=== PATIENT | male | born 1975 | race Caucasian/White ===

== ENCOUNTER 2020-04-01 12:50 | Outpatient (CLI) | payer OTHER ==
[2020-04-01 14:08] LABS: BASOPHILS % (AUTO) 0.3 % (0.0-2.0); EOSINOPHILS # (AUTO) 0.1 K/uL (0.0-0.4); EOSINOPHILS % (AUTO) 2.1 % (0.0-4.0); HEMATOCRIT 38.5 % (36-54); HEMOGLOBIN 13.2 g/dL (14.0-18.0); LYMPHOCYTES # (AUTO) 0.5 K/uL (1.0-5.5); LYMPHOCYTES % (AUTO) 18.6 % (20.5-51.5); MEAN CORPUSCULAR HEMOGLOBIN 34 pg (27-31); MEAN CORPUSCULAR HGB CONC 34 % (32-36); MEAN CORPUSCULAR VOLUME 100 fL (79.0-98.0); MONOCYTES # (AUTO) 0.3 K/uL (0.0-1.0); MONOCYTES % (AUTO) 10.3 % (1.7-9.3); NEUTROPHILS # (AUTO) 1.8 K/uL (1.8-7.7); NEUTROPHILS % (AUTO) 68.7 % (40.0-70.0); PLATELET COUNT (AUTO) 74 K/uL (130-430); RED BLOOD CELL COUNT(AUTO) 3.85 MIL/uL (4.2-6.2); WHITE BLOOD COUNT (AUTO) 2.6 K/uL (4.8-10.8)
[2020-04-01 14:42] LABS: ALBUMIN 3.5 g/dL (3.4-4.8); CALCIUM 8.1 mg/dL (8.4-11.0); CREATININE 0.71 mg/dL (0.55-1.30); POTASSIUM 4.2 mmol/L (3.5-5.1); THYROID STIMULATING HORMONE 1.97 uIu/mL (0.36-3.74); TOTAL BILIRUBIN 2.3 mg/dL (0.0-1.0)
[2020-04-02 13:16] LABS: FERRITIN 1615 ng/mL (30-400)
== END 2020-04-01 17:03 | disposition home or self-care (01) ==
LOC: SLB 12:50
PROVIDERS: ATTEND Family Medicine
DX: K62.1 Rectal polyp (principal); L73.9 Follicular disorder, unspecified; R61 Generalized hyperhidrosis
CPT/HCPCS: 36415; 80053; 80061; 82150-TC; 82728; 83540-TC; 83690-TC; 84443-TC; 85025; 86480

== ENCOUNTER 2020-04-26 08:23 | Outpatient (CLI) | payer OTHER ==
[2020-04-26 09:36] LABS: ALBUMIN 3.2 g/dL (3.4-4.8); BILIRUBIN,DIRECT 2.8 mg/dL (0.0-0.3); TOTAL BILIRUBIN 3.4 mg/dL (0.0-1.0)
[2020-04-27 08:14] LABS: HEPATITIS B CORE AB, IgM Negative (Negative); HEPATITIS B SURFACE AG Negative (Negative); HEPATITIS C VIRUS AB <0.1 s/co ratio (0.0-0.9)
== END 2020-04-26 21:04 | disposition home or self-care (01) ==
LOC: SUS 08:23
PROVIDERS: ATTEND Family Medicine
DX: R16.1 Splenomegaly, not elsewhere classified (principal); R79.89 Other specified abnormal findings of blood chemistry
CPT/HCPCS: 36415; 76700-TC; 80076; 86705; 86709; 86803; 87340

== ENCOUNTER 2020-06-06 07:59 | Outpatient (CLI) | payer OTHER ==
[2020-06-07 05:07] LABS: HEPATITIS A AB, IgM Negative (Negative); HEPATITIS B CORE AB, IgM Negative (Negative); HEPATITIS B SURFACE AG Negative (Negative)
[2020-06-07 08:06] LABS: AFP, TUMOR MARKER 4.2 ng/mL (0.0-8.3)
[2020-06-07 13:07] LABS: ANTI NUCLEAR AB WITH REFLEX Negative (Negative)
[2020-06-08 05:08] LABS: CERULOPLASMIN 30.2 mg/dL (16.0-31.0)
== END 2020-06-06 20:38 | disposition home or self-care (01) ==
LOC: SLB 07:59
DX: R94.5 Abnormal results of liver function studies (principal)
CPT/HCPCS: 36415; 80074; 82105; 82390; 83516; 84443-TC; 86038

== ENCOUNTER 2020-06-08 10:57 | Outpatient (CLI) | payer OTHER ==
[2020-06-08 12:14] LABS: BILIRUBIN,DIRECT 4.9 mg/dL (0.0-0.3)
[2020-06-08 12:35] LABS: TOTAL BILIRUBIN 5.5 mg/dL (0.0-1.0)
== END 2020-06-08 20:18 | disposition home or self-care (01) ==
LOC: SLB 10:57
PROVIDERS: ATTEND Family Medicine
DX: Z00.00 Encounter for general adult medical examination without abnormal findings (principal); R05 Cough
CPT/HCPCS: 36415; 71046-TC; 80076; 86480

== ENCOUNTER 2020-06-23 07:57 | Outpatient (CLI) | payer OTHER ==
[2020-06-23 08:58] LABS: ALBUMIN 2.3 g/dL (3.4-4.8); BILIRUBIN,DIRECT 1.4 mg/dL (0.0-0.3); CALCIUM 8.6 mg/dL (8.4-11.0); CREATININE 0.92 mg/dL (0.55-1.30); PHOSPHORUS 4.1 mg/dL (2.7-4.5); POTASSIUM 4.4 mmol/L (3.5-5.1); TOTAL BILIRUBIN 1.7 mg/dL (0.0-1.0)
[2020-06-24 07:07] LABS: FREE PSA 0.47 ng/mL
[2020-06-24 08:06] LABS: % FREE PSA 21.4 % (.); PROSTATE SPECIFIC AG TOTAL 2.2 ng/mL (0.0-4.0)
== END 2020-06-23 20:49 | disposition home or self-care (01) ==
LOC: SLB 07:57
PROVIDERS: ATTEND Family Medicine
DX: K64.9 Unspecified hemorrhoids (principal); R79.89 Other specified abnormal findings of blood chemistry
CPT/HCPCS: 36415; 80053; 82248-TC; 84100-TC; 84153

== ENCOUNTER 2020-06-27 12:00 | Outpatient (CLI) | payer OTHER | END 2020-06-27 20:09 | disposition home or self-care (01) | LOC: SMI 12:00 | PROVIDERS: ATTEND Family Medicine | DX: Z03.89 Encounter for observation for other suspected diseases and conditions ruled out (principal); R79.89 Other specified abnormal findings of blood chemistry | CPT/HCPCS: 74181 ==

== ENCOUNTER 2020-07-01 08:44 | Outpatient (CLI) | payer OTHER ==
[2020-07-02 08:06] LABS: AFP, TUMOR MARKER 7.2 ng/mL (0.0-8.3); ANTI NUCLEAR AB WITH REFLEX Negative (Negative)
== END 2020-07-01 21:27 | disposition home or self-care (01) ==
LOC: SLB 08:44
PROVIDERS: ATTEND Family Medicine
DX: R79.89 Other specified abnormal findings of blood chemistry (principal)
CPT/HCPCS: 36415; 82105; 86038

== ENCOUNTER 2020-07-06 08:15 | Outpatient (CLI) | payer OTHER ==
[2020-07-06 09:38] LABS: BASOPHILS % (AUTO) 0.4 % (0.0-2.0); EOSINOPHILS % (AUTO) 0.7 % (0.0-4.0); HEMATOCRIT 40.7 % (36-54); HEMOGLOBIN 13.9 g/dL (14.0-18.0); LYMPHOCYTES # (AUTO) 1.7 K/uL (1.0-5.5); LYMPHOCYTES % (AUTO) 37.1 % (20.5-51.5); MEAN CORPUSCULAR HEMOGLOBIN 35 pg (27-31); MEAN CORPUSCULAR HGB CONC 34 % (32-36); MEAN CORPUSCULAR VOLUME 103 fL (79.0-98.0); MONOCYTES # (AUTO) 0.3 K/uL (0.0-1.0); MONOCYTES % (AUTO) 5.5 % (1.7-9.3); NEUTROPHILS # (AUTO) 2.6 K/uL (1.8-7.7); NEUTROPHILS % (AUTO) 56.3 % (40.0-70.0); PLATELET COUNT (AUTO) 173 K/uL (130-430); RED BLOOD CELL COUNT(AUTO) 3.95 MIL/uL (4.2-6.2); RED CELL DISTRIBUTION WIDTH 14.2 % (9.0-15.0); WHITE BLOOD COUNT (AUTO) 4.7 K/uL (4.8-10.8)
[2020-07-06 09:54] LABS: ALBUMIN 3.2 g/dL (3.4-4.8); CALCIUM 9.9 mg/dL (8.4-11.0); CREATININE 0.84 mg/dL (0.55-1.30); POTASSIUM 4.8 mmol/L (3.5-5.1); TOTAL BILIRUBIN 1.3 mg/dL (0.0-1.0)
[2020-07-06 10:13] LABS: PROTHROMBIN TIME 10.1 SECS (9.5-12.5)
== END 2020-07-06 20:22 | disposition home or self-care (01) ==
LOC: SLB 08:15
PROVIDERS: ATTEND Family Medicine
DX: R74.8 Abnormal levels of other serum enzymes (principal)
CPT/HCPCS: 36415; 80053; 85025; 85610-TC

== ENCOUNTER 2020-08-25 09:34 | Outpatient (CLI) | payer OTHER ==
[2020-08-25 10:46] LABS: BASOPHILS % (AUTO) 0.6 % (0.0-2.0); EOSINOPHILS # (AUTO) 0.2 K/uL (0.0-0.4); EOSINOPHILS % (AUTO) 5.6 % (0.0-4.0); HEMATOCRIT 47.5 % (36-54); HEMOGLOBIN 16.5 g/dL (14.0-18.0); LYMPHOCYTES # (AUTO) 1.5 K/uL (1.0-5.5); LYMPHOCYTES % (AUTO) 38.8 % (20.5-51.5); MEAN CORPUSCULAR HEMOGLOBIN 33 pg (27-31); MEAN CORPUSCULAR HGB CONC 35 % (32-36); MEAN CORPUSCULAR VOLUME 97 fL (79.0-98.0); MONOCYTES # (AUTO) 0.3 K/uL (0.0-1.0); MONOCYTES % (AUTO) 8.5 % (1.7-9.3); NEUTROPHILS # (AUTO) 1.8 K/uL (1.8-7.7); NEUTROPHILS % (AUTO) 46.5 % (40.0-70.0); PLATELET COUNT (AUTO) 116 K/uL (130-430); RED BLOOD CELL COUNT(AUTO) 4.93 MIL/uL (4.2-6.2); RED CELL DISTRIBUTION WIDTH 12.9 % (9.0-15.0); WHITE BLOOD COUNT (AUTO) 3.9 K/uL (4.8-10.8)
[2020-08-25 10:56] LABS: ALBUMIN 3.7 g/dL (3.4-4.8); CALCIUM 9.2 mg/dL (8.4-11.0); CREATININE 0.92 mg/dL (0.55-1.30); POTASSIUM 3.8 mmol/L (3.5-5.1)
== END 2020-08-25 20:49 | disposition home or self-care (01) ==
LOC: SLB 09:34
DX: B20 Human immunodeficiency virus [HIV] disease (principal)
CPT/HCPCS: 36415; 80053; 85025; 86480; 86592; 87497

== ENCOUNTER 2021-01-03 15:23 | Outpatient (CLI) | payer OTHER ==
[2021-01-03 15:56] LABS: BASOPHILS % (AUTO) 0.8 % (0.0-2.0); EOSINOPHILS # (AUTO) 0.1 K/uL (0.0-0.4); EOSINOPHILS % (AUTO) 2.8 % (0.0-4.0); HEMOGLOBIN 16.9 g/dL (14.0-18.0); LYMPHOCYTES # (AUTO) 1.2 K/uL (1.0-5.5); LYMPHOCYTES % (AUTO) 34.8 % (20.5-51.5); MEAN CORPUSCULAR HEMOGLOBIN 34 pg (27-31); MEAN CORPUSCULAR HGB CONC 35 % (32-36); MEAN CORPUSCULAR VOLUME 97 fL (79.0-98.0); MONOCYTES # (AUTO) 0.5 K/uL (0.0-1.0); MONOCYTES % (AUTO) 13.8 % (1.7-9.3); NEUTROPHILS # (AUTO) 1.6 K/uL (1.8-7.7); NEUTROPHILS % (AUTO) 47.8 % (40.0-70.0); PLATELET COUNT (AUTO) 107 K/uL (130-430); RED BLOOD CELL COUNT(AUTO) 5.06 MIL/uL (4.2-6.2); RED CELL DISTRIBUTION WIDTH 15.5 % (9.0-15.0); WHITE BLOOD COUNT (AUTO) 3.4 K/uL (4.8-10.8)
== END 2021-01-03 20:01 | disposition home or self-care (01) ==
LOC: SLB 15:23
PROVIDERS: ATTEND Family Medicine
DX: K64.8 Other hemorrhoids (principal); Z21 Asymptomatic human immunodeficiency virus [HIV] infection status; Z87.19 Personal history of other diseases of the digestive system
CPT/HCPCS: 36415; 82728; 83540; 85025

== ENCOUNTER 2021-05-19 10:03 | Outpatient (CLI) | payer OTHER ==
[2021-05-19 11:23] LABS: THYROID STIMULATING HORMONE 0.76 uIu/mL (0.36-3.74)
[2021-05-19 11:42] LABS: BASOPHILS % (AUTO) 0.8 % (0.0-2.0); EOSINOPHILS # (AUTO) 0.2 K/uL (0.0-0.4); EOSINOPHILS % (AUTO) 4.9 % (0.0-4.0); HEMATOCRIT 51.4 % (36-54); HEMOGLOBIN 17.8 g/dL (14.0-18.0); LYMPHOCYTES # (AUTO) 1.7 K/uL (1.0-5.5); LYMPHOCYTES % (AUTO) 40.7 % (20.5-51.5); MEAN CORPUSCULAR HEMOGLOBIN 34 pg (27-31); MEAN CORPUSCULAR HGB CONC 35 % (32-36); MEAN CORPUSCULAR VOLUME 97 fL (79.0-98.0); MONOCYTES # (AUTO) 0.5 K/uL (0.0-1.0); MONOCYTES % (AUTO) 11.7 % (1.7-9.3); NEUTROPHILS # (AUTO) 1.7 K/uL (1.8-7.7); NEUTROPHILS % (AUTO) 41.9 % (40.0-70.0); RED BLOOD CELL COUNT(AUTO) 5.29 MIL/uL (4.2-6.2); RED CELL DISTRIBUTION WIDTH 14.3 % (9.0-15.0)
[2021-05-19 11:43] LABS: WHITE BLOOD COUNT (AUTO) 4.1 K/uL (4.8-10.8)
[2021-05-19 13:29] LABS: PLATELET COUNT (AUTO) 107 K/uL (130-430)
[2021-05-20 05:07] LABS: HEMOGLOBIN A1C 5.2 % (4.8-5.6)
== END 2021-05-19 19:27 | disposition home or self-care (01) ==
LOC: SLB 10:03
DX: Z00.00 Encounter for general adult medical examination without abnormal findings (principal); B20 Human immunodeficiency virus [HIV] disease
CPT/HCPCS: 36415; 80061; 82150; 82306; 83036; 83690; 84443; 85025

== ENCOUNTER 2021-06-13 09:48 | Outpatient (CLI) | payer OTHER | END 2021-06-13 19:01 | disposition home or self-care (01) | LOC: SLB 09:48 | DX: K25.9 Gastric ulcer, unspecified as acute or chronic, without hemorrhage or perforation (principal) | CPT/HCPCS: 36415 ==

== ENCOUNTER 2022-01-09 10:17 | Outpatient (CLI) | payer OTHER ==
[2022-01-09 13:31] LABS: CHOLESTEROL 217 mg/dL (<200); HDL CHOLESTEROL 33 mg/dL (>45); TRIGLYCERIDES 520 mg/dL (30-150)
[2022-01-09 13:32] LABS: LDL CHOLESTEROL 101 mg/dL (<100)
== END 2022-01-09 19:58 | disposition home or self-care (01) ==
LOC: SLB 10:17
DX: K25.9 Gastric ulcer, unspecified as acute or chronic, without hemorrhage or perforation (principal); K21.00 Gastro-esophageal reflux disease with esophagitis, without bleeding; B20 Human immunodeficiency virus [HIV] disease; E78.5 Hyperlipidemia, unspecified
CPT/HCPCS: 36415; 80061; 82306

== ENCOUNTER 2022-01-23 11:08 | Outpatient (CLI) | payer OTHER | END 2022-01-23 20:06 | disposition home or self-care (01) | LOC: SLB 11:08 | DX: B20 Human immunodeficiency virus [HIV] disease (principal) | CPT/HCPCS: 36415 ==

== ENCOUNTER 2022-02-07 11:59 | Outpatient (CLI) | payer OTHER ==
[2022-02-07 13:13] LABS: WHITE BLOOD COUNT (AUTO) 2.6 K/uL (4.8-10.8)
[2022-02-07 13:19] LABS: BASOPHILS % (AUTO) 0.6 % (0.0-2.0); EOSINOPHILS # (AUTO) 0.1 K/uL (0.0-0.4); EOSINOPHILS % (AUTO) 3.4 % (0.0-4.0); HEMATOCRIT 40.9 % (36-54); HEMOGLOBIN 14.5 g/dL (14.0-18.0); LYMPHOCYTES # (AUTO) 0.3 K/uL (1.0-5.5); LYMPHOCYTES % (AUTO) 11.6 % (20.5-51.5); MEAN CORPUSCULAR HEMOGLOBIN 35 pg (27-31); MEAN CORPUSCULAR HGB CONC 35 % (32-36); MEAN CORPUSCULAR VOLUME 98 fL (79.0-98.0); MONOCYTES # (AUTO) 0.2 K/uL (0.0-1.0); MONOCYTES % (AUTO) 6.3 % (1.7-9.3); NEUTROPHILS % (AUTO) 78.1 % (40.0-70.0); PLATELET COUNT (AUTO) 50 K/uL (130-430); RED BLOOD CELL COUNT(AUTO) 4.18 MIL/uL (4.2-6.2); RED CELL DISTRIBUTION WIDTH 15.6 % (9.0-15.0)
== END 2022-02-07 19:44 | disposition home or self-care (01) ==
LOC: SLB 11:59
PROVIDERS: ATTEND Family Medicine
DX: B20 Human immunodeficiency virus [HIV] disease (principal)
CPT/HCPCS: 36415; 85025

== ENCOUNTER 2022-02-27 11:12 | Inpatient (IN) | payer OTHER ==
[~2022-02-27] VITALS: Ht 182.9 cm; Wt 72.1 kg
[2022-02-27 11:37] LABS: EOSINOPHILS # (AUTO) 0.1 K/uL (0.0-0.4); EOSINOPHILS % (AUTO) 3.5 % (0.0-4.0); HEMATOCRIT 37.1 % (36-54); HEMOGLOBIN 13.1 g/dL (14.0-18.0); LYMPHOCYTES # (AUTO) 0.4 K/uL (1.0-5.5); LYMPHOCYTES % (AUTO) 15.5 % (20.5-51.5); MEAN CORPUSCULAR HEMOGLOBIN 36 pg (27-31); MEAN CORPUSCULAR HGB CONC 35 % (32-36); MEAN CORPUSCULAR VOLUME 101 fL (79.0-98.0); MONOCYTES # (AUTO) 0.3 K/uL (0.0-1.0); MONOCYTES % (AUTO) 9.5 % (1.7-9.3); NEUTROPHILS % (AUTO) 70.5 % (40.0-70.0); PLATELET COUNT (AUTO) 101 K/uL (130-430); RED BLOOD CELL COUNT(AUTO) 3.69 MIL/uL (4.2-6.2); RED CELL DISTRIBUTION WIDTH 15.6 % (9.0-15.0); WHITE BLOOD COUNT (AUTO) 2.8 K/uL (4.8-10.8)
[2022-02-27 12:06] LABS: CALCIUM 8.6 mg/dL (8.4-11.0); CREATININE 0.82 mg/dL (0.55-1.30); POTASSIUM 4.6 mmol/L (3.5-5.1)
[2022-02-27 12:10] LABS: PROTHROMBIN TIME 10.6 SECS (9.5-12.5)
[2022-02-27 12:11] LABS: ALBUMIN 3.1 g/dL (3.4-4.8); TOTAL BILIRUBIN 5.2 mg/dL (0.0-1.0)
[2022-02-27 12:30] VITALS: BP_SYST 137
[2022-02-27] MEDS ORDERED: DOCUSATE SODIUM 100 MG CAPSULE PO PRN (15:15)
[2022-02-27] MEDS ORDERED: NALOXONE HCL 0.4 MG/ML AMP (NARCAN) IVP PRN ×2 (15:15)
[2022-02-27] MEDS ORDERED: ACETAMINOPHEN 325 MG TABLET PO PRN ×2 (15:15→18:45)
[2022-02-27] MEDS ORDERED: MAGNESIUM SULFATE 50 ML IV PRN (15:15)
[2022-02-27] MEDS ORDERED: LORazepam 2 MG/ML VIAL IVP PRN (15:15)
[2022-02-27] MEDS ORDERED: MORPHINE 2 MG/ML INJ. SYRINGE IVP PRN ×2 (15:15)
[2022-02-27] MEDS ORDERED: ZOLPIDEM TARTRATE 5 MG TABLET PO PRN (15:15)
[2022-02-27] MEDS ORDERED: ONDANSETRON HCL 4 MG/2 ML VIAL IVP PRN (15:15)
[2022-02-27] MEDS ORDERED: MUPIROCIN 2% TOPICAL OINTMENT 22 GM NS PRN (15:15)
[2022-02-27] MEDS ORDERED: POTASSIUM CHLORIDE 20 MEQ TAB.PRT.SR PO PRN (15:15)
[2022-02-27] MEDS ORDERED: ESCI10TA PO (15:28)
[2022-02-27] MEDS ORDERED: BICT1TAB3 (15:28)
[2022-02-27 18:00] VITALS: BP_SYST 129
[2022-02-27 20:00] VITALS: BP_SYST 103
[2022-02-28 00:42] VITALS: BP_SYST 122
[2022-02-28 06:59] LABS: CALCIUM 8.6 mg/dL (8.4-11.0); CREATININE 0.8 mg/dL (0.55-1.30); POTASSIUM 4.6 mmol/L (3.5-5.1)
[2022-02-28] MEDS: NACL 0.9% 1,000 ML IV SCH ×3 (07:30→20:00)
[2022-02-28 08:00] VITALS: BP_SYST 126
[2022-02-28] MEDS ORDERED: CITALOPRAM HYDROBROMIDE 20 MG TABLET PO ONE (09:00)
[2022-02-28 09:18] LABS: BASOPHILS % (AUTO) 0.7 % (0.0-2.0); EOSINOPHILS # (AUTO) 0.1 K/uL (0.0-0.4); EOSINOPHILS % (AUTO) 4.8 % (0.0-4.0); HEMATOCRIT 35.6 % (36-54); HEMOGLOBIN 12.1 g/dL (14.0-18.0); LYMPHOCYTES # (AUTO) 0.6 K/uL (1.0-5.5); LYMPHOCYTES % (AUTO) 21.8 % (20.5-51.5); MEAN CORPUSCULAR HEMOGLOBIN 35 pg (27-31); MEAN CORPUSCULAR HGB CONC 34 % (32-36); MEAN CORPUSCULAR VOLUME 102 fL (79.0-98.0); MONOCYTES # (AUTO) 0.3 K/uL (0.0-1.0); MONOCYTES % (AUTO) 12.5 % (1.7-9.3); NEUTROPHILS # (AUTO) 1.6 K/uL (1.8-7.7); NEUTROPHILS % (AUTO) 60.2 % (40.0-70.0); PLATELET COUNT (AUTO) 95 K/uL (130-430); RED BLOOD CELL COUNT(AUTO) 3.49 MIL/uL (4.2-6.2); RED CELL DISTRIBUTION WIDTH 15.9 % (9.0-15.0)
[2022-02-28 09:50] LABS: WHITE BLOOD COUNT (AUTO) 2.7 K/uL (4.8-10.8)
[2022-02-28] MEDS ORDERED: BICT1TAB PO (11:56)
[2022-02-28 12:00] VITALS: BP_SYST 128
[2022-02-28] MEDS ORDERED: ESCI20TA PO (12:14)
[2022-02-28 16:00] VITALS: BP_SYST 132
[2022-02-28] MEDS ORDERED: COMMUNICATION ORDER XX ONE (17:15)
[2022-02-28] MEDS: cefTRIAXone 1 GM in D5W 50 ML IV SCH (18:26)
[2022-02-28 20:00] VITALS: BP_SYST 110
[2022-03-01] VITALS: BP_SYST 120
[2022-03-01 08:30] VITALS: BP_SYST 127
[2022-03-01 08:56] LABS: BASOPHILS % (AUTO) 0.6 % (0.0-2.0); EOSINOPHILS # (AUTO) 0.1 K/uL (0.0-0.4); EOSINOPHILS % (AUTO) 5.8 % (0.0-4.0); HEMATOCRIT 36.3 % (36-54); HEMOGLOBIN 12.6 g/dL (14.0-18.0); LYMPHOCYTES # (AUTO) 0.6 K/uL (1.0-5.5); LYMPHOCYTES % (AUTO) 22.8 % (20.5-51.5); MEAN CORPUSCULAR HEMOGLOBIN 35 pg (27-31); MEAN CORPUSCULAR HGB CONC 35 % (32-36); MEAN CORPUSCULAR VOLUME 101 fL (79.0-98.0); MONOCYTES # (AUTO) 0.2 K/uL (0.0-1.0); MONOCYTES % (AUTO) 7.4 % (1.7-9.3); NEUTROPHILS # (AUTO) 1.6 K/uL (1.8-7.7); NEUTROPHILS % (AUTO) 63.4 % (40.0-70.0); PLATELET COUNT (AUTO) 98 K/uL (130-430); RED BLOOD CELL COUNT(AUTO) 3.59 MIL/uL (4.2-6.2); RED CELL DISTRIBUTION WIDTH 15.5 % (9.0-15.0); WHITE BLOOD COUNT (AUTO) 2.5 K/uL (4.8-10.8)
[2022-03-01] MEDS: BIKTARVY PO SCH (09:00)
[2022-03-01 09:01] LABS: CALCIUM 8.1 mg/dL (8.4-11.0); CREATININE 0.79 mg/dL (0.55-1.30); POTASSIUM 3.8 mmol/L (3.5-5.1)
[2022-03-01 10:06] LABS: HEPATITIS A AB, IgM Negative (Negative); HEPATITIS B CORE AB, IgM Negative (Negative); HEPATITIS B SURFACE AG Negative (Negative)
[2022-03-01] MEDS: CITALOPRAM HYDROBROMIDE 20 MG TABLET PO SCH (10:55)
[2022-03-01] MEDS: NACL 0.9% 1,000 ML IV SCH (10:57)
[2022-03-01] MEDS: cefTRIAXone 1 GM in D5W 50 ML IV SCH (16:27)
[2022-03-01 20:30] VITALS: BP_SYST 123
[2022-03-02 00:15] VITALS: BP_SYST 125
[2022-03-02] MEDS: NACL 0.9% 1,000 ML IV SCH ×2 (00:18→09:30)
[2022-03-02 08:08] LABS: ALBUMIN 2.6 g/dL (3.4-4.8); BILIRUBIN,DIRECT 3.4 mg/dL (0.0-0.3); CALCIUM 8.4 mg/dL (8.4-11.0); CREATININE 0.69 mg/dL (0.55-1.30); POTASSIUM 3.7 mmol/L (3.5-5.1)
[2022-03-02 08:25] LABS: BASOPHILS % (AUTO) 0.7 % (0.0-2.0); EOSINOPHILS # (AUTO) 0.1 K/uL (0.0-0.4); EOSINOPHILS % (AUTO) 5.5 % (0.0-4.0); HEMATOCRIT 35.6 % (36-54); HEMOGLOBIN 12.5 g/dL (14.0-18.0); LYMPHOCYTES # (AUTO) 0.6 K/uL (1.0-5.5); LYMPHOCYTES % (AUTO) 23.1 % (20.5-51.5); MEAN CORPUSCULAR HEMOGLOBIN 35 pg (27-31); MEAN CORPUSCULAR HGB CONC 35 % (32-36); MEAN CORPUSCULAR VOLUME 101 fL (79.0-98.0); MONOCYTES # (AUTO) 0.3 K/uL (0.0-1.0); MONOCYTES % (AUTO) 12.1 % (1.7-9.3); NEUTROPHILS # (AUTO) 1.5 K/uL (1.8-7.7); NEUTROPHILS % (AUTO) 58.6 % (40.0-70.0); PLATELET COUNT (AUTO) 101 K/uL (130-430); RED BLOOD CELL COUNT(AUTO) 3.52 MIL/uL (4.2-6.2); RED CELL DISTRIBUTION WIDTH 15.5 % (9.0-15.0); WHITE BLOOD COUNT (AUTO) 2.6 K/uL (4.8-10.8)
[2022-03-02 08:35] VITALS: BP_SYST 121
[2022-03-02] MEDS: BIKTARVY PO SCH (08:36)
[2022-03-02] MEDS: CITALOPRAM HYDROBROMIDE 20 MG TABLET PO SCH (08:36)
[2022-03-02 11:46] VITALS: BP_SYST 121
[2022-03-02 12:35] VITALS: BP_SYST 117
== END 2022-03-02 12:50 | disposition home or self-care (01) | DRG 445 ==
LOC: SED 11:12 → SMU 13:53
PROVIDERS: ADMIT General Practice; ATTEND General Practice
DX: K80.20 Calculus of gallbladder without cholecystitis without obstruction (principal); B20 Human immunodeficiency virus [HIV] disease; R17 Unspecified jaundice; R74.01 Elevation of levels of liver transaminase levels; F17.210 Nicotine dependence, cigarettes, uncomplicated; Z20.822 Contact with and (suspected) exposure to COVID-19; Z79.899 Other long term (current) drug therapy
CPT/HCPCS: 36415; 71045; 74181; 76700-TC; 78226; 80048; 80053; 80074; 80076; 82140; 83036; 83690; 83735; 85025; 85610-TC; 85730-TC; 87040; 87177; 99285; A9537; J0696; J2270; J7030; J7060

== ENCOUNTER 2022-03-12 12:08 | Outpatient (CLI) | payer OTHER ==
[~2022-03-12 12:08] MED LIST: BICT1TAB PO; ESCI20TA PO
[2022-03-12 13:11] LABS: ALBUMIN 3.1 g/dL (3.4-4.8); CREATININE 0.74 mg/dL (0.55-1.30); TOTAL BILIRUBIN 2.6 mg/dL (0.0-1.0)
== END 2022-03-12 17:59 | disposition home or self-care (01) ==
LOC: SLB 12:08
DX: B20 Human immunodeficiency virus [HIV] disease (principal)
CPT/HCPCS: 36415; 80053

== ENCOUNTER 2022-03-16 12:23 | Outpatient (CLI) | payer OTHER ==
[2022-03-17 10:06] LABS: HEPATITIS A AB, IgM Negative (Negative); HEPATITIS B CORE AB, IgM Negative (Negative); HEPATITIS B SURFACE AG Negative (Negative)
== END 2022-03-16 20:12 | disposition home or self-care (01) ==
LOC: SLB 12:23
DX: B20 Human immunodeficiency virus [HIV] disease (principal); R17 Unspecified jaundice; B02.29 Other postherpetic nervous system involvement
CPT/HCPCS: 36415; 80074

== ENCOUNTER 2022-06-14 12:22 | Outpatient (CLI) | payer OTHER ==
[2022-06-14 14:23] LABS: BASOPHILS % (AUTO) 0.5 % (0.0-2.0); EOSINOPHILS # (AUTO) 0.2 K/uL (0.0-0.4); EOSINOPHILS % (AUTO) 4.4 % (0.0-4.0); HEMATOCRIT 47.1 % (36-54); HEMOGLOBIN 16.6 g/dL (14.0-18.0); LYMPHOCYTES # (AUTO) 1.3 K/uL (1.0-5.5); LYMPHOCYTES % (AUTO) 33.2 % (20.5-51.5); MEAN CORPUSCULAR HEMOGLOBIN 34 pg (27-31); MEAN CORPUSCULAR HGB CONC 35 % (32-36); MEAN CORPUSCULAR VOLUME 97 fL (79.0-98.0); MONOCYTES # (AUTO) 0.4 K/uL (0.0-1.0); MONOCYTES % (AUTO) 10.3 % (1.7-9.3); NEUTROPHILS % (AUTO) 51.6 % (40.0-70.0); PLATELET COUNT (AUTO) 79 K/uL (130-430); RED BLOOD CELL COUNT(AUTO) 4.86 MIL/uL (4.2-6.2); RED CELL DISTRIBUTION WIDTH 12.6 % (9.0-15.0); WHITE BLOOD COUNT (AUTO) 3.9 K/uL (4.8-10.8)
== END 2022-06-14 19:38 | disposition home or self-care (01) ==
LOC: SLB 12:22
DX: B20 Human immunodeficiency virus [HIV] disease (principal)
CPT/HCPCS: 36415; 85025; 86592

== ENCOUNTER 2022-11-28 11:44 | Outpatient (CLI) | payer OTHER ==
[2022-11-28 12:24] LABS: BASOPHILS % (AUTO) 0.5 % (0.0-2.0); EOSINOPHILS # (AUTO) 0.2 K/uL (0.0-0.4); EOSINOPHILS % (AUTO) 4.6 % (0.0-4.0); HEMATOCRIT 49.3 % (36-54); HEMOGLOBIN 16.7 g/dL (14.0-18.0); LYMPHOCYTES # (AUTO) 1.4 K/uL (1.0-5.5); LYMPHOCYTES % (AUTO) 36.4 % (20.5-51.5); MEAN CORPUSCULAR HEMOGLOBIN 34 pg (27-31); MEAN CORPUSCULAR HGB CONC 34 % (32-36); MEAN CORPUSCULAR VOLUME 100 fL (79.0-98.0); MONOCYTES # (AUTO) 0.3 K/uL (0.0-1.0); MONOCYTES % (AUTO) 8.6 % (1.7-9.3); NEUTROPHILS # (AUTO) 1.9 K/uL (1.8-7.7); NEUTROPHILS % (AUTO) 49.9 % (40.0-70.0); RED BLOOD CELL COUNT(AUTO) 4.95 MIL/uL (4.2-6.2); RED CELL DISTRIBUTION WIDTH 14.6 % (9.0-15.0); WHITE BLOOD COUNT (AUTO) 3.9 K/uL (4.8-10.8)
[2022-11-28 12:57] LABS: ALBUMIN 4.2 g/dL (3.4-4.8); CREATININE 0.83 mg/dL (0.55-1.30); TOTAL BILIRUBIN 2.5 mg/dL (0.0-1.0)
[2022-11-28 13:15] LABS: PLATELET COUNT (AUTO) 99 K/uL (130-430)
== END 2022-11-28 20:20 | disposition home or self-care (01) ==
LOC: SLB 11:44
PROVIDERS: ATTEND Internal Medicine
DX: B20 Human immunodeficiency virus [HIV] disease (principal)
CPT/HCPCS: 36415; 80053; 85025

== ENCOUNTER 2023-03-01 09:23 | Outpatient (CLI) | payer OTHER | END 2023-03-01 18:37 | disposition home or self-care (01) | LOC: SLB 09:23 | DX: B20 Human immunodeficiency virus [HIV] disease (principal) | CPT/HCPCS: 36415 ==

== ENCOUNTER 2023-07-08 11:29 | Outpatient (CLI) | payer OTHER ==
[2023-07-08 12:11] LABS: TOTAL IRON BIND. CAPACITY 396 ug/dL (250-450)
[2023-07-08 12:45] LABS: ALBUMIN 4.1 g/dL (3.4-4.8); CALCIUM 9.9 mg/dL (8.4-11.0); CREATININE 0.9 mg/dL (0.55-1.30); POTASSIUM 4.2 mmol/L (3.5-5.1); TOTAL BILIRUBIN 1.2 mg/dL (0.0-1.0); TOTAL PROTEIN, SERUM 8.2 g/dL (6.4-8.3)
[2023-07-08 13:00] LABS: BASOPHILS % (AUTO) 0.5 % (0.0-2.0); EOSINOPHILS # (AUTO) 0.1 K/uL (0.0-0.4); EOSINOPHILS % (AUTO) 1.7 % (0.0-4.0); HEMATOCRIT 49.8 % (36-54); HEMOGLOBIN 17.5 g/dL (14.0-18.0); LYMPHOCYTES # (AUTO) 0.7 K/uL (1.0-5.5); LYMPHOCYTES % (AUTO) 22.6 % (20.5-51.5); MEAN CORPUSCULAR HEMOGLOBIN 35 pg (27-31); MEAN CORPUSCULAR HGB CONC 35 % (32-36); MEAN CORPUSCULAR VOLUME 101 fL (79.0-98.0); MONOCYTES # (AUTO) 0.3 K/uL (0.0-1.0); MONOCYTES % (AUTO) 9.9 % (1.7-9.3); NEUTROPHILS # (AUTO) 2.1 K/uL (1.8-7.7); NEUTROPHILS % (AUTO) 65.3 % (40.0-70.0); PLATELET COUNT (AUTO) 103 K/uL (130-430); RED BLOOD CELL COUNT(AUTO) 4.95 MIL/uL (4.2-6.2); RED CELL DISTRIBUTION WIDTH 14.5 % (9.0-15.0); WHITE BLOOD COUNT (AUTO) 3.2 K/uL (4.8-10.8)
[2023-07-08] MEDS ORDERED: LIDOINT TP (13:53)
[2023-07-08] MEDS ORDERED: DOCU-144 PO (13:54)
== END 2023-07-08 19:33 | disposition home or self-care (01) ==
LOC: SLB 11:29
PROVIDERS: ATTEND Nurse Practitioner Family
DX: K80.20 Calculus of gallbladder without cholecystitis without obstruction (principal); N28.1 Cyst of kidney, acquired; K21.9 Gastro-esophageal reflux disease without esophagitis; I70.0 Atherosclerosis of aorta; R19.4 Change in bowel habit; N28.89 Other specified disorders of kidney and ureter
CPT/HCPCS: 36415; 80053; 83540; 83550; 83690; 85025

== ENCOUNTER 2023-07-08 12:42 | Emergency (ER) | payer OTHER ==
[~2023-07-08] VITALS: Ht 182.9 cm; Wt 88.5 kg
[2023-07-08 12:50] VITALS: BP_SYST 140; PULSE 88; RESP 16; TEMP 97.9; O2SAT 99
[2023-07-08 13:43] LABS: BASOPHILS % (AUTO) 0.5 % (0.0-2.0); EOSINOPHILS # (AUTO) 0.1 K/uL (0.0-0.4); EOSINOPHILS % (AUTO) 1.3 % (0.0-4.0); HEMOGLOBIN 17.3 g/dL (14.0-18.0); LYMPHOCYTES # (AUTO) 1.1 K/uL (1.0-5.5); LYMPHOCYTES % (AUTO) 26.6 % (20.5-51.5); MEAN CORPUSCULAR HEMOGLOBIN 35 pg (27-31); MEAN CORPUSCULAR HGB CONC 35 % (32-36); MEAN CORPUSCULAR VOLUME 101 fL (79.0-98.0); MONOCYTES # (AUTO) 0.4 K/uL (0.0-1.0); MONOCYTES % (AUTO) 9.7 % (1.7-9.3); NEUTROPHILS # (AUTO) 2.4 K/uL (1.8-7.7); NEUTROPHILS % (AUTO) 61.9 % (40.0-70.0); PLATELET COUNT (AUTO) 100 K/uL (130-430); RED BLOOD CELL COUNT(AUTO) 4.96 MIL/uL (4.2-6.2); RED CELL DISTRIBUTION WIDTH 14.2 % (9.0-15.0)
[2023-07-08] MEDS ORDERED: LIDOINT TP (13:53)
[2023-07-08] MEDS ORDERED: DOCU-144 PO (13:54)
[2023-07-08 14:32] VITALS: BP_SYST 140; PULSE 88; RESP 16; TEMP 97.9; O2SAT 99
[2023-07-08] MEDS: LIDOCAINE JELLY 5 ML TUBE RC ONE (14:36)
== END 2023-07-08 14:20 | disposition home or self-care (01) ==
LOC: SED 12:42
DX: K64.9 Unspecified hemorrhoids (principal); K62.89 Other specified diseases of anus and rectum; Z79.899 Other long term (current) drug therapy
CPT/HCPCS: 99283; 85025; 36415; Q9967